=== PATIENT | female | born 1980 | race Caucasian/White ===

== ENCOUNTER → 2017-03-25 | Outpatient (CLI) | payer OTHER ==
[~2017-03-25] VITALS: Ht 165.1 cm; Wt 90.7 kg
[2017-03-25 11:17] LABS: GLUCOSE,CSF 63 mg/dL (50-80); TOTAL PROTEIN,CSF 27 mg/dL (20-45)
== END ==
LOC: RAD 08:39
PROVIDERS: Psychiatry & Neurology Neurology
DX: G93.2 Benign intracranial hypertension (principal); Z98.890 Other specified postprocedural states
CPT/HCPCS: 82945; 84157; 89051